=== PATIENT | female | born 1945 | race Caucasian/White ===

== ENCOUNTER 2020-12-19 09:10 | Outpatient (RCR) | payer MEDICARE, SELFPAY ==
--- NOTE | 2020-12-19 09:49 | PTOPEVAL ---
Thank you for referring Xin Rain to [facility].? The patient is scheduled to be seen for therapy? ____x/week for ___ weeks. Please review, sign, date and return this plan of care FIGUEROA. I agree with and certify that the following plan of care is medically necessary. Referring Physician Date Admitting Provider: Attending Provider: kaia york Referring Provider: JEFFERSON Outpatient Evaluation Start: 12/19/20 09:06 Freq: Status: Active Protocol: Document 12/19/20 09:05 [facility] (Rec: 12/19/20 09:47 [facility] [id number]) Therapy Assessment Status Assessment Status Assessment Status Evaluation Evaluation Information Problem Diagnosis s/p L TKA Onset 12/17/20 Additional Evaluation Detail LEFS = 91% functionally declined Subjective Information patient reports she has L knee Query Text:As Reported By Patient/ replacement on 12/17/20. she Family reports she had some dehydration after the surgery and was in the hospital yesterday, but reports she is feeling better now. Pain Assessment Timing of Pain Assessment Timing of Pain Assessment Assessment Pain Scale Pain Scale Used Numeric (1 - 10) Self Report Pain Assessment Left Knee(s) Reported Pain Level 0 Lowest Pain Intensity 0 Greatest Pain Intensity 10 Pain Score Pain Score 0: Self Report Additional Pain Score Comments patient reports no pain sitting, but reports 10/10 pain standing without pain medication Interventions Used Interventions Used By Clinicians Activity or ADL's,Compression Pump,Education,Electrical Stimulation,Exercise,Ice Lower Extremity Range of Motion General Lower Extremity Range of Motion Gross Lower Extremity Range of Motion 40cm R knee jt line girth Comments 41.5cm L knee jt line girth Knee Range of Motion Right Knee Flexion Range of Motion - Active 125 Knee Extension Range of Motion - Active -4 Query Text: Left Knee Flexion Range of Motion - Active 82 Knee Extension Range of Motion - Active -7 Query Text: Lower Extremity Muscle Strength Testing Hip Strength Right Hip Flexion Strength 4+ Good + Left Hip Flexion Strength 3+ Fair + Hip Strength Comments 5 degree knee ext lag Knee Strength Right Knee Flexion Strength 4+ Good + Knee Extension Strength 4+ Good + Left Knee Flexion Strength 4- Good - Knee Extension Strength
== END 2021-01-23 17:00 | disposition home or self-care (01) ==
LOC: CHSPT 09:10
DX: Z47.1 Aftercare following joint replacement surgery (principal); Z96.652 Presence of left artificial knee joint
CPT/HCPCS: 97016; 97110; 97161; 97530